=== PATIENT | female | born 1955 | race Caucasian/White ===

== ENCOUNTER 2016-11-03 10:56 | Outpatient (CLI) | payer OTHER ==
[2016-11-03 11:45] LABS: ALT (SGPT) 12 U/L (0-55); AST (SGOT) 19 U/L (5-34); Albumin 4.1 g/dL (3.4-4.8); Alkaline Phosphatase 66 U/L (40-150); Anion Gap 14 mmol/L (10-20); BUN (Urea Nitrogen) 4 mg/dL (9.8-20.1); Bilirubin, Total 0.4 mg/dL (0.2-1.2); Calc. Creatinine Clearance 0 mL/min (70-130); Calcium 9.2 mg/dL (7.8-10.44); Carbon Dioxide 27 mmol/L (23-31); Chloride 94 mmol/L (98-107); Estimated GFR-MDRD Greater than 90; Globulin 3.4 g/dL (2.4-3.5); Glucose 112 mg/dL (80-115); Potassium 3.8 mmol/L (3.5-5.1); Protein, Total 7.5 g/dL (5.8-8.1); Sodium 131 mmol/L (136-145)
[2016-11-03 11:49] LABS: #Basophils 0.1 thou/uL (0.0-0.2); #Eosinphils 0.2 thou/uL (0.0-0.7); #Lymphocytes 1.1 thou/uL (1.20-3.40); #Monocytes 0.8 thou/uL (0.11-0.59); #Neutrophils 6.2 thou/uL (1.40-6.50); %Basophils 1.3 % (0.0-1.0); %Eosinophils 2.9 % (0.0-10.0); %Lymphocytes 12.8 % (21.0-51.0); %Monocytes 9.4 % (0.0-10.0); %Neutrophils 73.5 % (42.0-75.0); Anisocytosis SLIGHT = 6-15 cells (100X) (0-5/hpf); Hemoglobin 14.7 g/dL (12.0-16.0); MDiff Complete? YES; Macrocytosis SLIGHT = 6-15 cells (100X) (0-5/hpf); Mean Corpuscular HGB CONC 34.6 g/dL (32.0-36.0); Mean Corpuscular Hemoglobin 36.8 pg (27.0-31.0); Mean Corpuscular Volume 106.3 fl (81.0-99.0); Mean Platelet Volume 5.7 fL (7.4-10.4); PLT Morphology Comment Appears Adequate; Platelet Count 307 thou/uL (130-400); RBC Distribution Width 11.8 % (11.5-14.5); Red Blood Cell (RBC) Count 3.99 mill/uL (4.20-5.40); White Blood Cell (WBC) Count 8.5 thou/uL (4.8-10.8)
== END 2016-11-03 10:57 | disposition home or self-care (01) ==
LOC: MADLABBHPM 10:56
PROVIDERS: ATTEND Family Medicine
DX: R53.0 Neoplastic (malignant) related fatigue (principal)
CPT/HCPCS: 36415; 80053; 84443; 85025

== ENCOUNTER 2017-03-23 16:09 | Outpatient (CLI) | payer OTHER ==
[2017-03-23 16:40] LABS: Hemoglobin A1c 4.9 % (4.0-6.0)
[2017-03-23 16:42] LABS: ALT (SGPT) 9 U/L (8-55); AST (SGOT) 15 U/L (5-34); Albumin 4.2 g/dL (3.4-4.8); Alkaline Phosphatase 54 U/L (40-150); Anion Gap 15 mmol/L (10-20); BUN (Urea Nitrogen) Less than 4 mg/dL (9.8-20.1); Bilirubin, Total 0.4 mg/dL (0.2-1.2); Calc. Creatinine Clearance 0 mL/min (70-130); Calcium 9.1 mg/dL (7.8-10.44); Carbon Dioxide 25 mmol/L (23-31); Chloride 91 mmol/L (98-107); Estimated GFR-MDRD Greater than 90; Globulin 3.1 g/dL (2.4-3.5); Glucose 98 mg/dL (80-115); Potassium 3.8 mmol/L (3.5-5.1); Protein, Total 7.3 g/dL (6.0-8.3); Sodium 127 mmol/L (136-145)
[2017-03-23 17:12] LABS: #Basophils 0.1 thou/uL (0.0-0.2); #Eosinphils 0.2 thou/uL (0.0-0.7); #Lymphocytes 1.5 thou/uL (1.20-3.40); #Monocytes 0.9 thou/uL (0.11-0.59); %Basophils 1.1 % (0.0-1.0); %Eosinophils 1.9 % (0.0-10.0); %Lymphocytes 17.7 % (21.0-51.0); %Monocytes 9.9 % (0.0-10.0); %Neutrophils 69.5 % (42.0-75.0); MDiff Complete? YES; Mean Corpuscular HGB CONC 36.1 g/dL (32.0-36.0); Mean Corpuscular Hemoglobin 34.5 pg (27.0-31.0); Mean Corpuscular Volume 95.7 fl (81.0-99.0); Mean Platelet Volume 5.6 fL (7.4-10.4); Platelet Count 308 thou/uL (130-400); RBC Distribution Width 12.3 % (11.5-14.5); Red Blood Cell (RBC) Count 4.04 mill/uL (4.20-5.40); White Blood Cell (WBC) Count 8.6 thou/uL (4.8-10.8)
[2017-03-23 17:13] LABS: Anisocytosis SLIGHT = 6-15 cells (100X) (0-5/hpf); PLT Morphology Comment Appears Adequate
== END 2017-03-23 16:10 | disposition home or self-care (01) ==
LOC: MADLABBHPM 16:09
PROVIDERS: ATTEND Family Medicine
DX: T45.1X5A Adverse effect of antineoplastic and immunosuppressive drugs, initial encounter (principal); R63.0 Anorexia; R11.0 Nausea
CPT/HCPCS: 36415; 80053; 83036; 84443; 85025

== ENCOUNTER 2017-04-09 14:29 | Outpatient (CLI) | payer OTHER ==
[2017-04-09 15:01] LABS: Anion Gap 15 mmol/L (10-20); BUN (Urea Nitrogen) 6 mg/dL (9.8-20.1); Calc. Creatinine Clearance 0 mL/min (70-130); Calcium 9.1 mg/dL (7.8-10.44); Carbon Dioxide 24 mmol/L (23-31); Chloride 91 mmol/L (98-107); Estimated GFR-MDRD Greater than 90; Glucose 141 mg/dL (80-115); Potassium 3.5 mmol/L (3.5-5.1); Sodium 126 mmol/L (136-145)
== END 2017-04-09 14:30 | disposition home or self-care (01) ==
LOC: MADLABBHPM 14:29
PROVIDERS: ATTEND Family Medicine
DX: E87.1 Hypo-osmolality and hyponatremia (principal)
CPT/HCPCS: 36415; 80048

== ENCOUNTER 2017-08-14 16:50 | Emergency (ER) | payer OTHER ==
[2017-08-14 17:44] LABS: Hemoglobin 14.6 g/dL (12.0-16.0); Lymphocytes 3 % (21-51); MDiff Complete? YES; Mean Corpuscular HGB CONC 34.5 g/dL (32.0-36.0); Mean Corpuscular Hemoglobin 34.8 pg (27.0-31.0); Mean Corpuscular Volume 100.8 fl (81.0-99.0); Mean Platelet Volume 6.1 fL (7.4-10.4); Monocytes 11 % (0-10); Neutrophil 85 % (42-75); PLT Morphology Comment Appears Adequate; Platelet Count 337 thou/uL (130-400); RBC Distribution Width 12.4 % (11.5-14.5); RBC Morphology Normal; Reactive Lymphocytes 1 % (0-10); Red Blood Cell (RBC) Count 4.21 mill/uL (4.20-5.40); White Blood Cell (WBC) Count 12.1 thou/uL (4.8-10.8)
[2017-08-14 17:49] LABS: ALT (SGPT) 28 U/L (8-55); AST (SGOT) 44 U/L (5-34); Alkaline Phosphatase 55 U/L (40-150); Anion Gap 16 mmol/L (10-20); BUN (Urea Nitrogen) 9 mg/dL (9.8-20.1); Bilirubin, Total 0.7 mg/dL (0.2-1.2); Calc. Creatinine Clearance 0 mL/min (70-130); Carbon Dioxide 31 mmol/L (23-31); Chloride 87 mmol/L (98-107); Estimated GFR-MDRD Greater than 90; Globulin 3.7 g/dL (2.4-3.5); Glucose 162 mg/dL (80-115); Protein, Total 6.7 g/dL (6.0-8.3); Sodium 131 mmol/L (136-145)
[2017-08-14 17:51] LABS: Potassium 2.6 mmol/L (3.5-5.1)
[2017-08-14] MEDS ORDERED: NS 0.9% w/ 40 MEQ KCL 1,000 ML IV ONE (18:00)
--- NOTE | 2017-08-14 18:21 | RAD ---
CHEST ONE VIEW 08/14/17 HISTORY: Cough. COMPARISON: Chest radiograph 05/24/17. CT of the chest 05/26/17. There is a nodular density projecting over the left upper lobe measuring approximately 1 cm. Ciliary mass right upper lobe appears similar. There is fluid in the right lung apex. The findings are unchan ged. The cardiac silhouette and mediastinal contours are similar. No acute osseous abnormality. IMPRESSION: 1. Nodular density projecting in the left lung apex may be confluent to shadows versus scar. Mal ignancy is also within the differential. Followup CT of the chest nonemergently recommended. 2. Spiculated area in the right upper lobe is similar. There is a small area of cavitation. POS: [facility]
[2017-08-14] MEDS ORDERED: Potassium Chloride 20 MEQ TAB ONE (18:36)
[2017-08-14 21:14] LABS: Potassium 3.9 mmol/L (3.5-5.1)
[2017-08-14] MEDS ORDERED: Azithromycin 250 MG TAB ONE (21:32)
[2017-08-14] MEDS ORDERED: predniSONE 20 MG TAB ONE (21:32)
== END 2017-08-14 22:05 | disposition home or self-care (01) ==
LOC: MADERS 16:50
DX: J44.9 Chronic obstructive pulmonary disease, unspecified (principal); E87.6 Hypokalemia; F41.9 Anxiety disorder, unspecified; F32.9 Major depressive disorder, single episode, unspecified; F17.210 Nicotine dependence, cigarettes, uncomplicated
CPT/HCPCS: 36415; 71045; 80053; 85025; 93005; 94640; 96365; 96366; J7506; J7620

== ENCOUNTER 2017-08-19 16:23 | Emergency (ER) | payer OTHER ==
[2017-08-19] MEDS ORDERED: methylPREDNISolone Sod Succ/PF 125 MG/2 ML VIAL ONE (16:55)
[2017-08-19] MEDS ORDERED: Ketorolac Tromethamine 30 MG/ML VIAL ONE (16:55)
[2017-08-19] MEDS ORDERED: Levofloxacin 500 mg/D5W 100 ml Premix Bag ONE (16:55)
[2017-08-19] MEDS ORDERED: cefTRIAXone\\ROCEPHIN 1 GM VIAL ONE (16:55)
[2017-08-19 17:26] LABS: #Basophils 0.1 thou/uL (0.0-0.2); #Lymphocytes 0.5 thou/uL (1.20-3.40); #Monocytes 0.5 thou/uL (0.11-0.59); %Basophils 0.7 % (0.0-1.0); %Eosinophils 0.2 % (0.0-10.0); %Lymphocytes 2.7 % (21.0-51.0); %Monocytes 2.9 % (0.0-10.0); %Neutrophils 93.6 % (42.0-75.0); Anion Gap 18 mmol/L (10-20); Anisocytosis SLIGHT = 6-15 cells (100X) (0-5/hpf); BUN (Urea Nitrogen) 12 mg/dL (9.8-20.1); Calc. Creatinine Clearance 0 mL/min (70-130); Calcium 8.9 mg/dL (7.8-10.44); Carbon Dioxide 28 mmol/L (23-31); Chloride 95 mmol/L (98-107); Estimated GFR-MDRD Greater than 90; Glucose 126 mg/dL (80-115); Hemoglobin 13.2 g/dL (12.0-16.0); MDiff Complete? YES; Mean Corpuscular HGB CONC 34.1 g/dL (32.0-36.0); Mean Corpuscular Hemoglobin 34.7 pg (27.0-31.0); Mean Corpuscular Volume 101.7 fl (81.0-99.0); Mean Platelet Volume 5.5 fL (7.4-10.4); Platelet Count 409 thou/uL (130-400); Potassium 3.6 mmol/L (3.5-5.1); RBC Distribution Width 12.9 % (11.5-14.5); Red Blood Cell (RBC) Count 3.81 mill/uL (4.20-5.40); Sodium 137 mmol/L (136-145); White Blood Cell (WBC) Count 18.2 thou/uL (4.8-10.8)
[2017-08-19 17:31] LABS: CKMB 2.1 ng/mL (0-6.6); Troponin I Less than 0.010 ng/mL (< 0.028)
--- NOTE | 2017-08-19 17:41 | RAD ---
PORTABLE CHEST ONE VIEW 08/19/17 at 5:04 p.m. HISTORY: Dyspnea, lung cancer, status post chemoradiation treatments. Comparison is made with exam of 08/14/17. Opacification in the right upper lobe is again seen. The heart size is normal. No new infiltrates, pn eumothoraces, or pleural effusions are identified. POS: [facility]
== END 2017-08-19 18:33 | disposition short-term general hospital (02) ==
LOC: MADERS 16:23
DX: J44.1 Chronic obstructive pulmonary disease with (acute) exacerbation (principal); I10 Essential (primary) hypertension; F41.9 Anxiety disorder, unspecified; F32.9 Major depressive disorder, single episode, unspecified
CPT/HCPCS: 36415; 71045; 80048; 82553; 83605; 83880; 84484; 85025; 93005; 94640; 94760; 96365; 96375; J0696; J1885; J1956; J2930; J7620

== ENCOUNTER 2018-08-24 10:06 | Emergency (ER) | payer OTHER ==
--- NOTE | 2018-08-24 11:12 | RAD ---
RIGHT FOREARM TWO VIEWS: INDICATIONS: Fall with injury and pain. FINDINGS: There is a displaced comminuted and impacted intraarticular distal radial fracture. There is heterot opic density adjacent to the ulnar styloid, partially obscured. It is limited in evaluation. 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 IMPRESSION: 1. Comminuted, impacted distal radial fracture with intraarticular extension. 2. Heterotopic density, adjacent to the ulnar styloid, incompletely visualized. POS: [facility]
--- NOTE | 2018-08-24 11:12 | RAD ---
THREE VIEWS RIGHT WRIST: Comparison: None. History: Fall with right arm pain. FINDINGS: Three views of the right wrist shows a fracture of the distal radial metaphysis with surrounding defo rmity. Overlying soft tissue swelling is seen. No dislocation is seen. IMPRESSION: Distal radius fracture. POS: [facility]
[2018-08-24] MEDS ORDERED: Ibuprofen 800 MG TAB ONE (11:21)
[2018-08-24] MEDS ORDERED: HYDROcodone/Acetaminophen 10/325 mg Tablet ONE (11:21)
== END 2018-08-24 11:45 | disposition home or self-care (01) ==
LOC: MADERS 10:06
DX: S52.571A Other intraarticular fracture of lower end of right radius, initial encounter for closed fracture (principal); I11.0 Hypertensive heart disease with heart failure; F17.210 Nicotine dependence, cigarettes, uncomplicated; F41.9 Anxiety disorder, unspecified; F32.9 Major depressive disorder, single episode, unspecified; W19.XXXA Unspecified fall, initial encounter
CPT/HCPCS: 29125

== ENCOUNTER 2019-03-10 20:17 | Emergency (ER) | payer OTHER ==
[2019-03-10] MEDS ORDERED: Acetaminophen/Codeine 30-300mg Tablet ONE (20:47)
--- NOTE | 2019-03-10 21:05 | RAD ---
LEFT HUMERUS TWO VIEWS: 03/10/19 HISTORY: Trauma, pain. FINDINGS: Comminuted fracture with angulation of the proximal humerus. IMPRESSION: Proximal humerus fracture. POS: [facility]
--- NOTE | 2019-03-10 21:15 | RAD ---
THREE VIEWS LEFT SHOULDER: 03/10/19 HISTORY: Pain. Injury. FINDINGS: Comminuted fracture with angulation involving the neck of the left humerus. There is also a possible fracture involving the left coracoid process. IMPRESSION: Left coracoid process as well as a proximal left humerus fracture. The proximal left humerus fracture is comminuted and there is angulation at the neck of the left humerus. POS: [facility]
== END 2019-03-10 21:20 | disposition home or self-care (01) ==
LOC: MADERS 20:17
DX: S42.202A Unspecified fracture of upper end of left humerus, initial encounter for closed fracture (principal); I10 Essential (primary) hypertension; F41.9 Anxiety disorder, unspecified; F32.9 Major depressive disorder, single episode, unspecified; F17.210 Nicotine dependence, cigarettes, uncomplicated; Z71.6 Tobacco abuse counseling; W19.XXXA Unspecified fall, initial encounter
CPT/HCPCS: 99406